=== PATIENT | female | born 1955 | race Caucasian/White ===

== ENCOUNTER → 2018-07-05 | Outpatient (CLI) | payer OTHER ==
--- NOTE | 2018-07-09 15:25 | MAM ---
EXAM DESCRIPTION: 3D Screening BILATERAL : Digital Mammography. CLINICAL HISTORY: 63 years Female SCREENING . "Fibrocystic tissue." No other complaints. Gallstones with breast cancer. Childbirth. Postmenopausal 34 years. No HRT. Bilateral breast reduction.. Lifetime risk of developing breast cancer (Tyrer-Cuzick model)(%): Not calculated COMPARISON: Baseline study at this facility. No prior reports available. TECHNIQUE: Bilateral CC and MLO projection full-field images, digital tomosynthesis mammographic technique. Bilateral digital 2-D full-field MLO images. CAD not available for tomosynthesis or 2-D images. FINDINGS: The breast parenchymal density pattern is: Scattered areas of fibroglandular density. No skin thickening or nipple retraction. Unusual focal asymmetries in densities in both breasts most likely secondary to prior breast reduction. Slightly irregular mass density posterior third abutting the chest wall at the 600 clock position with multiple calcifications and circumscribed microlobulated and irregular margins. Another focal asymmetry more laterally and in the upper outer quadrant at the 10:00 position of the right breast 9 cm from the nipple. Bilateral solitary microcalcifications and vascular calcifications. Bilateral axillary lymph nodes. Mass density in the middle third of the left breast at the 2:00 position approximately 8 cm from the nipple. Not associated with microcalcifications. Minimal architectural distortion retroareolar left breast. IMPRESSION: BI-RADS CATEGORY: 0 - INCOMPLETE- Need additional imaging evaluation. FOLLOW-UP: Recall for additional imaging: Bilateral targeted breast ultrasound of the regions of interest. Bilateral orthogonal full-field digital tomosynthesis diagnostic images.. Written communication concerning the IMPRESSION and Follow-up, will be mailed to the patient and referring health care provider.. Electronically signed by: Ifeanyi Ortega MD 07/09/2018 3:22 PM [facility]
== END ==
LOC: MAMMO 16:10
PROVIDERS: ATTEND General Practice
DX: Z12.31 Encounter for screening mammogram for malignant neoplasm of breast (principal)

== ENCOUNTER → 2018-07-18 | Outpatient (CLI) | payer OTHER ==
--- NOTE | 2018-07-18 19:03 | US ---
EXAM DESCRIPTION: Breast,Bilateral: Ultrasound CLINICAL HISTORY: 63 yearsFemaleFIBROCYSTIC CHANGES OF BREAST. Bilateral abnormal breast densities. Previous removal of silicone breast implants. COMPARISON: Bilateral screening digital breast tomosynthesis 07/05/2015. Bilateral diagnostic digital breast tomosynthesis today. TECHNIQUE: Transcutaneous scanning of the bilateral breast utilizing farnsworth-scale and Doppler modes. Scanning performed by the wet mix operator and Dr. Ortega. FINDINGS: Scanning of the left breast shows fibroglandular and fatty echotexture. 1:00-2:00, 4 cm from the nipple. Irregular hypoechoic objects with predominantly posterior acoustic shadowing. No definite mass. Parallel orientation. No abnormal vascularity. May represent residual implant tissue. 2:00-3:00, 5 to 6 cm from the nipple. Mixed hypoechoic and echogenic structure with variable posterior acoustic signature, mostly posterior enhancement. No definite mass. This could represent a lymph node or residual implant tissue. No distinct cyst. No large calcifications or parenchymal edema. Normal overlying skin. No abnormal vascularity. Scanning of the right breast shows fibroglandular and fatty heterogeneous echotexture. 8:00-9:00 variable echogenicity with some acoustic shadowing but no definite mass. Same at 9:30-10:00 8 cm from the nipple. No distinct cysts. No parenchymal edema or large calcifications. No overlying skin changes. No abnormal vascularity. IMPRESSION: Abnormal tissues and shadowing bilateral breast ultrasound. Correlates with irregular densities and mass densities on both breasts by digital mammography. Difficult to differentiate abnormal findings from residual implant material bilateral breasts. Breast MRI without and with gadolinium IV would be more sensitive to differentiate post implant removal changes from malignancy. ASSESSMENT: BI-RADS CATEGORY: 0 - INCOMPLETE- Need additional imaging evaluation. FOLLOW-UP: Recall for additional imaging: MRI scan of the bilateral breasts without and with gadolinium IV contrast. The FINDINGS and the FOLLOW-UP plan were reviewed in person with the patient after the examination. Written communication explaining the IMPRESSION and FOLLOW-UP will be mailed to the patient and referring care provider. CRITICAL COMMUNICATION: The critical value was discussed directly by phone with TAYLOR Mortensen at approximately 1620 hours, on 07/18/2018. Electronically signed by: Ifeanyi Ortega MD 07/18/2018 7:00 PM [facility]
--- NOTE | 2018-07-19 10:18 | MAM ---
EXAM DESCRIPTION: 3D Diagnostic, Bilateral: Digital Mammography CLINICAL HISTORY: 63 yearsFemaleFIBROCYSTIC CHANGES OF BREAST . Bilateral silicon breast implants removed. Bilateral abnormal breast densities. No personal history of breast cancer. Remote family history of breast cancer. Postmenopausal. No HRT. Lifetime risk of developing breast cancer (Tyrer-Cuzick model) percentage is 6.2. COMPARISON: Bilateral screening digital breast tomosynthesis 07/05/2018. Bilateral targeted breast ultrasound included with this examination.. TECHNIQUE: Bilateral LM projection full-field images, digital mammographic tomosynthesis technique. CAD not available. FINDINGS: The breast parenchymal density pattern is: Scattered areas of fibroglandular density. No skin thickening or nipple retraction again noted is focal asymmetry posterior right breast near the chest wall at approximately 11:30-12:00 position. Adjacent calcifications. Also focal asymmetry 8:00-9:00 position. Mass density 2:00-3:00 position 8 cm from the nipple. Adjacent calcifications. Ultrasound: Scanning of the left breast shows fibroglandular and fatty echotexture. 1:00-2:00, 4 cm from the nipple. Irregular hypoechoic objects with predominantly posterior acoustic shadowing. No definite mass. Parallel orientation. No abnormal vascularity. May represent residual implant tissue. 2:00-3:00, 5 to 6 cm from the nipple. Mixed hypoechoic and echogenic structure with variable posterior acoustic signature, mostly posterior enhancement. No definite mass. This could represent a lymph node or residual implant tissue. No distinct cyst. No large calcifications or parenchymal edema. Normal overlying skin. No abnormal vascularity. Scanning of the right breast shows fibroglandular and fatty heterogeneous echotexture. 8:00-9:00 variable echogenicity with some acoustic shadowing but no definite mass. Same at 9:30-10:00 8 cm from the nipple. No distinct cysts. No parenchymal edema or large calcifications. No overlying skin changes. No abnormal vascularity. IMPRESSION: Abnormal tissues and shadowing bilateral breast ultrasound. Correlates with irregular densities and mass densities on both breasts by digital mammography. Difficult to differentiate abnormal findings from residual implant material bilateral breasts. Breast MRI without and with gadolinium IV would be more sensitive to differentiate post implant removal changes from malignancy. ASSESSMENT: BI-RADS CATEGORY: 0 - INCOMPLETE- Need additional imaging evaluation. FOLLOW-UP: Recall for additional imaging: MRI scan of the bilateral breasts without and with gadolinium IV contrast. The FINDINGS and the FOLLOW-UP plan were reviewed in person with the patient after the examination. Written communication explaining the IMPRESSION and FOLLOW-UP will be mailed to the patient and referring care provider. CRITICAL COMMUNICATION: The critical value was discussed directly by phone with TAYLOR Mortensen at approximately 1620 hours, on 07/18/2018. Electronically signed by: Ifeanyi Ortega MD 07/19/2018 10:15 AM [facility]
== END ==
LOC: MAMMO 08:00
PROVIDERS: ATTEND Nurse Practitioner Family
DX: N60.11 Diffuse cystic mastopathy of right breast (principal); N60.12 Diffuse cystic mastopathy of left breast
CPT/HCPCS: 76641; 77066; G0279

== ENCOUNTER → 2018-09-06 | Outpatient (CLI) | payer OTHER ==
--- NOTE | 2018-09-06 10:16 | OP ---
DATE OF PROCEDURE: 09/06/18 PREOPERATIVE DIAGNOSIS: 1. Abnormal left mammogram. POSTOPERATIVE DIAGNOSIS: 1. Abnormal left mammogram. PROCEDURE: 1. Sonographically guided needle core biopsy, left breast mass. SURGEON: Dragan Lux MD. AREA SALES MANAGER: None. ANESTHESIA: Local infiltration of 1% lidocaine. INDICATION: The patient is a 63-year-old female who on routine mammography was found to have an abnormality in both the right and left breasts. She eventually underwent ultrasound and an MRI with gadolinium contrast which revealed no lesion in the right breast and question of a mass in the left breast most likely consistent with a fibroadenoma. She was brought to the Ultrasound Suite today for sonographically guided needle core biopsy after the risks, benefits and alternatives to the procedure were discussed and accepted. FINDINGS: The previous ultrasound was reviewed along with the realtime ultrasound with the radiologist. The lesion was identified and multiple specimens were taken. PROCEDURE: After the patient was brought to the Ultrasound Suite and placed in the supine position with the head of the bed gently elevated, she was then turned somewhat upon her right side with a pillow behind her left shoulder and back. The left breast was examined. The lesion was identified. The breast lateral to the ultrasound probe was prepped with Betadine and draped with towels. Local infiltration of anesthesia was obtained with 1% lidocaine and the 25-gauge needle was introduced to the mass and infiltration between the skin and mass was performed with local anesthesia. A stab wound was then made with a 15 blade and then multiple passes were made with the biopsy needle with identification of the needle within the mass. The specimens were placed in the formalin and sent for pathological evaluation. Hemostasis was obtained with pressure. A single suture was placed with 4-0 Nylon. Sterile pressure dressing was applied. There was less than 5 mL of blood loss. The patient tolerated the procedure well. Followup appointment was made for next week. [facility][id number] [facility]
--- NOTE | 2018-09-06 19:39 | US ---
EXAM DESCRIPTION: Biopsy/Needle Guidance: Ultrasound. CLINICAL HISTORY: 63 years Female ABNORMAL MAMMO R92.8. Left breast mass BI-RADS Category 4A on MRI scan without and with gadolinium IV contrast. COMPARISON: Diagnostic ultrasound of the bilateral breast on 07/18/2018. TECHNIQUE: The procedure was performed by Dr. Lux. Repeat ultrasound localized the lesion at the 2:00-3:00 position of the left breast 5 to 6 cm from the nipple.. Sterile preparation. Sterile ultrasound guidance during needle passes. FINDINGS: The lesion is well demonstrated prior to the procedure multiple images demonstrate the echogenic needle within the lesion substance. IMPRESSION: Successful, ultrasound-guided needle core biopsy of left breast mass. Adequate core samples were obtained. Pathology examination at remote facility, results pending. Electronically signed by: Ifeanyi Ortega MD 09/06/2018 7:36 PM CDT
== END ==
LOC: US 08:24
PROVIDERS: ATTEND Surgery
DX: R92.8 Other abnormal and inconclusive findings on diagnostic imaging of breast (principal)

== ENCOUNTER 2020-02-12 11:41 | Emergency (ER) | payer OTHER ==
[2020-02-12] MEDS ORDERED: MORPHINE SULFATE INJ 10 MG/ML VIAL IV ONE (11:47)
[2020-02-12] MEDS ORDERED: MORPHINE SULFATE INJ 10 MG/ML VIAL ONE (11:47)
--- NOTE | 2020-02-12 11:59 | ED.PDOC ---
History of Present Illness - General Time Seen by Provider: 02/12/20 11:43 - History of Present Illness Initial Comments: 65 yo F was running to get dog when she missed stepped off porch and suffered ankle pain. Has not been able to ambulate since injury. Denies hitting head, l oc or other injuries. Denies numbness, tingling or discoloration. Allergies/Adverse Reactions: Allergies Penicillins Allergy (Verified 02/12/20 11:52) Home Medications: Ambulatory Orders Acetaminophen W/ Codeine [Tylenol W/ CODEINE #3] 1 ea PO Q6H PRN #12 ea 02/12/20 Review of Systems - Review of Systems Constitutional: Denies: chills, fever EENTM: Denies: blurred vision, throat pain, mouth pain Respiratory: Denies: cough, short of breath Cardiology: Denies: chest pain, palpitations Gastrointestinal/Abdominal: Denies: abdominal pain, diarrhea, nausea, vomiting Genitourinary: Denies: frequency, hematuria Musculoskeletal: States: joint pain, joint swelling. Denies: back pain Skin: Denies: rash Neurological: Denies: headache, numbness, paresthesia, seizure, tingling, tremors Hematologic/Lymphatic: Denies: blood clots, easy bleeding, easy bruising Past Medical History (General) - Patient Medical History Hx Seizures: No Hx Stroke: No Hx Dementia: No Hx of COPD: No Hx Cardiac Disorders: No Hx Congestive Heart Failure: No Hx Pacemaker: No Hx Hypertension: No Hx Thyroid Disease: No Hx Diabetes: No Hx Gastroesophageal Reflux: No Hx Cancer: No Hx of HIV: No Hx MRSA: No Other Surgeries:: - Social History Hx Tobacco Use: No Hx Alcohol Use: No Hx Substance Use: No Hx Depression: No - Activities of Daily Living Patient Lives Alone: Yes Family Medical History - Family History Mother Family History: Unknown Physical Exam - Physical Exam General Appearance: Alert, Comfortable, No apparent distress, Well Developed, Well Groomed, Well Hydrated, Well Nourished Eyes, Ears, Nose, Throat: PERRL/EOMI, normal ENT inspection Neck: non-tender, full range of motion, supple, normal inspection Cardiovascular/Respiratory: no M/R/G, normal peripheral pulses, normal breath sounds, no respiratory distress, tachycardia Gastrointestinal/Abdominal: non-tender, no organomegaly Back: normal inspection, no CVA tenderness, no vertebral tenderness Thigh/Hip: normal inspection, non-tender Leg: normal inspection Ankle: bone tenderness, deformity - dislocation , ecchymosis, soft tissue tenderness, swelling, other - dorsalis pedis and posterior tibialis 2+ faustina sym Progress - Progress Progress: post reduction exam wnl. normal sensation, motor function and good pulses. The data reviewed when caring for this patient included: nurse notesetc. The history and assessments from nurses notes were reviewed and considered, and the patient 's home medication list was also reviewed and considered. My assessment and the results of testing completed here in the ED were discussed with the patient/friend. All questions were answered, and they express understanding of my assessment and the plan. They have been instructed to return if their symptoms worsen, and have been asked to follow up with Dr. Aquino to recheck today's presenting complaint. Strict return precautions given including but not limited to worsening pain, numbness, change in color of foot, tingling, dislocation. she has been instructed to be NWB. I have reviewed medication, benefits, alternatives and side effects. Patient decided to proceed with medication.Poonam Joe DO #[id number] 02/12/20 13:26 - Results/Orders Results/Orders: 02/12/20 13:14 Discharge Stat Laboratory Results WBC 4.5 K/mm3 (4.8-10.8) L 02/12/20 12:35 RBC 4.65 M/mm3 (4.20-5.40) 02/12/20 12:35 Hgb 15.5 gm/dL (12.0-16.0) 02/12/20 12:35 Hct 45.0 % (36.0-47.0) 02/12/20 12:35 MCV 96.7 fl (81.0-99.0) 02/12/20 12:35 MCH 33.4 pg (27.0-31.0) H 02/12/20 12:35 MCHC 34.5 g/dL (33.0-37.0) 02/12/20 12:35 RDW 14.5 % (11.5-14.5) 02/12/20 12:35 Plt Count 236 K/mm3 (130-400) 02/12/20 12:35 MPV 7.0 fl (7.40-10.4) L 02/12/20 12:35 Absolute Neuts (auto) 3.30 K/uL (1.8-6.8) 02/12/20 12:35 Absolute Lymphs (auto) 0.60 K/uL (1.0-3.4) L 02/12/20 12:35 Absolute Monos (auto) 0.40 K/uL (0.2-0.8) 02/12/20 12:35 Absolute Eos (auto) 0.10 K/uL (0.0-0.4) 02/12/20 12:35 Absolute Basos (auto) 0.00 K/uL (0.0-0.1) 02/12/20 12:35 Neutrophils % 74.3 % (42.0-78.0) 02/12/20 12:35 Lymphocytes % 13.9 % (20.0-50.0) L 02/12/20 12:35 Monocytes % 8.1 % (2.0-9.0) 02/12/20 12:35 Eosinophils % 2.7 % (1.0-5.0) 02/12/20 12:35 Basophils % 1.0 % (0.0-2.0) 02/12/20 12:35 Sodium 142 mmol/L (135-145) 02/12/20 12:35 Potassium 3.4 mmol/L (3.6-5.0) L 02/12/20 12:35 Chloride 104 mmol/L (101-111) 02/12/20 12:35 Carbon Dioxide 26 mmol/L (21-31) 02/12/20 12:35 Anion Gap 15.4 (12-18) 02/12/20 12:35 BUN 17 mg/dL (7-18) 02/12/20 12:35 Creatinine 0.74 mg/dL (0.6-1.3) 02/12/20 12:35 BUN/Creatinine Ratio 23.0 (10-20) H 02/12/20 12:35 Random Glucose 138 mg/dL (70-105) H 02/12/20 12:35 Serum Osmolality 286.9 mOsm/L (275-295) 02/12/20 12:35 Calcium 8.8 mg/dL (8.4-10.2) 02/12/20 12:35 Total Bilirubin 0.5 mg/dL (0.2-1.0) 02/12/20 12:35 AST 32 IU/L (10-42) 02/12/20 12:35 ALT 32 IU/L (10-60) 02/12/20 12:35 Alkaline Phosphatase 66 IU/L (42-121) 02/12/20 12:35 Serum Total Protein 6.5 gm/dL (6.4-8.2) 02/12/20 12:35 Albumin 3.8 g/dl (3.2-5.5) 02/12/20 12:35 Globulin 2.7 gm/dL (2.3-3.5) 02/12/20 12:35 Albumin/Globulin Ratio 1.4 (1.1-1.9) 02/12/20 12:35 patients K was replaced with 40 meq po x 1 - Consult/PCP Time Called: 12:33 Consult/PCP: Dr. Aquino Procedures - Additional Procedures Progress: CONSCIOUS SEDATION PROCEDURE NOTE: Procedural Sedation Performed by: Dr. Poonam Joe Indications: ankle dislocation [place] Protocol: a time out was performed and the correct patient and site were verified Consent: The risks and benefits of monitored anesthesia care, including the risk of aspiration, deep sedation requiring airway management including possible intubation, nausea/vomiting and the risks of not performing the procedure, including severe pain and inability to complete the procedure, were all discussed with the [patient]. The alternatives of performing the procedure, including local anesthesia and IV analgesia, also discussed. The patient has a ride home available. ASA Class: [I-healthy] Mallampati Score: II Pre-anesthesia evaluation, including history, exam, and informed consent is documented in the note above. Monitoring: Continuous monitoring of heart rate, respiratory rate, pulse oximetry and ETCO2. Supplemental oxygen prior to and during procedure via nasal cannula. Resuscitation equipment available at the bedside during sedation. Intra-service start time: see paper documentation Intra-service stop time: see paper documentation The patient received 45 mg propofol and dosages were recorded on the sedation form. While sedated traction applied to ankle with anterior pressure put on heal, a palpable pop was felt, post reduction xray confirmed ankle reduced. dorsalis pedis pulse and post tibil pulse 2+ faustina. sensation and distal motor function was intact. a posterior short leg and stirrup splint were applied. The patient was recovered from the sedation without complication or incident. Patient returned to pre-sedation level of awareness. The monitoring was discontinued at this time. Post-anesthesia evaluation: Respiratory function, cardiovascular function, temperature, and mental status return to pre-anesthetic state. Pain was controlled. The patient tolerated p.o. Departure - Departure Clinical Impression: Hypokalemia Trimalleolar fracture of ankle, closed Qualifiers: Encounter type: initial encounter Laterality: right Qualified Code(s): S82.851A - Displaced trimalleolar fracture of right lower leg, initial encounter for closed fracture Ankle dislocation Qualifiers: Encounter type: initial encounter Laterality: right Qualified Code(s): S93.04XA - Dislocation of right ankle joint, initial encounter Time of Disposition: 13:06 Disposition: Discharge to Home or Self Care Instructions: Ankle Dislocation (DC), Ankle Fracture (DC) Activity: other - no weight bearing on right leg Referrals: Mark Mercedes MD [Primary Care Provider] - 1-5 Days Todd Aquino MD [Active Staff] - 02/13/20 Prescriptions: Acetaminophen W/ Codeine [Tylenol W/ CODEINE #3] 1 ea PO Q6H PRN #12 ea PRN Reason: Pain Home Medications: Ambulatory Orders Acetaminophen W/ Codeine [Tylenol W/ CODEINE #3] 1 ea PO Q6H PRN #12 ea 02/12/20 Additional Instructions: Follow up with Dr. Aquino tomorrow at 930 AM, return if symptoms worsen or as instructed.
--- NOTE | 2020-02-12 12:13 | RAD ---
EXAM DESCRIPTION: Ankle,Right 2 Views CLINICAL HISTORY: 65 years Female, fracture COMPARISON: None. Findings: Two view(s)/radiograph(s) Right ankle fracture or dislocation. Trimalleolar right ankle fracture with posterior dislocation of the talus with respect to the distal tibia. The distal fibular fracture fragment measures 5.2 cm. The medial malleolus fracture fragment measures 3.0 cm. The posterior malleolar fracture fragment measures 2.8 cm. IMPRESSION: Trimalleolar right ankle fracture dislocation. Electronically signed by: Irineo Hernandez MD 02/12/2020 12:11 PM CDT
[2020-02-12] MEDS ORDERED: PROPOFOL 200 MG/20 ML VIAL IV ONE (12:21)
--- NOTE | 2020-02-12 12:54 | RAD ---
EXAM DESCRIPTION: Ankle x-ray Right 2 Views CLINICAL HISTORY: 65 years, Female, post reduction COMPARISON: Previous x-ray right ankle same day TECHNIQUE: AP/lateral x-rays of the right ankle FINDINGS: Fractured lateral and medial malleolus. Compared to previous study, the degree of displacement and angulation is decreased consistent with reduction. Oblique fracture through the distal fibular diaphysis overlaps approximately 2 cm with a gap at the fracture site of approximately 6 mm. Gap at the medial malleolar fracture site is 7 mm. Talar dome appears intact. Calcaneus is not well seen. Additional x-ray images of the hindfoot may be helpful. IMPRESSION: Improved alignment of bimalleolar ankle fractures. Electronically signed by: Satya Polanco MD 02/12/2020 12:52 PM CDT
[2020-02-12] MEDS ORDERED: POTASSIUM CHLORIDE ELIXIR 20 MEQ/15 ML UD PO ONE (13:01)
[2020-02-12 14:04] VITALS: TEMP 97; O2SAT 94
[2020-02-12 14:07] VITALS: BP 159/90
== END 2020-02-12 13:45 | disposition home or self-care (01) ==
LOC: ER 11:41
DX: S82.851A Displaced trimalleolar fracture of right lower leg, initial encounter for closed fracture (principal); Z88.0 Allergy status to penicillin; X50.9XXA Other and unspecified overexertion or strenuous movements or postures, initial encounter; Y92.008 Other place in unspecified non-institutional (private) residence as the place of occurrence of the external cause; Y93.02 Activity, running
CPT/HCPCS: 36415; 73600; 80053; 85025; 94770; J2270; J3490

== ENCOUNTER 2020-02-14 05:40 | Day surgery (SDC) | payer OTHER ==
[2020-02-14] MEDS ORDERED: SODIUM CHL 0.9% 100ML MINI-BAG 100 ML IVPB ONE (05:54)
[2020-02-14] MEDS ORDERED: ceFAZolin SODIUM 1 GM VIAL ONE (05:54)
[2020-02-14] MEDS ORDERED: LACTATED RINGERS 1,000 ML ONE (05:54)
[2020-02-14] MEDS ORDERED: LACTATED RINGERS 1,000 ML IVS ONE (06:20)
[2020-02-14] MEDS ORDERED: BUPIVACAINE 0.5% 30 ML VIAL INJ ONE (06:21)
[2020-02-14] MEDS ORDERED: KETAMINE HCL 100 MG/ML VIAL ONE (06:43)
[2020-02-14] MEDS ORDERED: HYDROmorphone HCL INJ 2 MG/ML VIAL ONE (06:43)
[2020-02-14] MEDS ORDERED: ACETAMINOPHEN IV 1000MG 100 ML ONE (06:43)
[2020-02-14] MEDS ORDERED: DEXMEDETOMIDINE HCL 200 MCG/2 ML INJ IV ONE (06:43)
[2020-02-14] MEDS ORDERED: FAMOTIDINE INJ 10 MG/ML VIAL IV ONE (06:44)
[2020-02-14] MEDS ORDERED: MIDAZOLAM INJ 2 MG/2 ML VIAL ONE (06:44)
[2020-02-14] MEDS ORDERED: MAGNESIUM SULFATE INJ 1 GM/2 ML VIAL ONE (07:00)
[2020-02-14] MEDS ORDERED: ePHEDrine SULF 50 MG/ML ONE (07:00)
[2020-02-14] MEDS ORDERED: diphenhydrAMINE HCL 50 MG/ML VIAL ONE (07:00)
[2020-02-14] MEDS ORDERED: DEXAMETHASONE INJ 10 MG/ML VIAL ONE (07:00)
[2020-02-14] MEDS ORDERED: LIDOCAINE 1% 10 ML VIAL INJ ONE (07:00)
[2020-02-14] MEDS ORDERED: PROPOFOL 200 MG/20 ML VIAL IV ONE (07:00)
[2020-02-14] MEDS ORDERED: SODIUM CHLORIDE 0.9% 50 ML VIAL ONE (07:00)
[2020-02-14] MEDS ORDERED: KETOROLAC TROMETHAMINE INJ 30 MG/ML VIAL ONE (07:00)
[2020-02-14] MEDS: VANCOMYCIN HCL INJ 1,000 MG VIAL IVPB ONE ×2 (08:23→09:06)
[2020-02-14] MEDS: ceFAZolin SODIUM 1 GM VIAL ONE ×2 (08:23→09:05)
[2020-02-14] MEDS: BUPIVACAINE LIPOSOME 13.3 MG/ML VIAL INJ ONE ×2 (08:23→09:05)
[2020-02-14] MEDS ORDERED: ONDANSETRON INJ 4 MG/2 ML VIAL ONE (10:37)
[2020-02-14 12:50] VITALS: BP 124/75; TEMP 98.8; O2SAT 95
--- NOTE | 2020-02-14 13:34 | RAD ---
EXAM DESCRIPTION: Ankle,Right 2 Views CLINICAL HISTORY: 65 years, Female, POST SURGERY DR RIVAS COMPARISON: Previous x-ray images right ankle February 13, 2020 TECHNIQUE: AP/lateral/oblique of the right ankle FINDINGS: Plate and screws in the distal fibula with medial screws through the medial malleolus. Mild edema around the ankle joint. Orthopedic hardware has been placed since the previous study. IMPRESSION: Internal fixation of right ankle fractures. Electronically signed by: Satya Polanco MD 02/14/2020 1:33 PM CDT
--- NOTE | 2020-02-14 14:29 | RAD ---
PROVIDED CLINICAL HISTORY/REASON FOR EXAM: ORIF RIGHT ANKLE Findings/impression: One intraoperative fluoroscopic images. Please see operative note Dose: 2.15 mGy Time: 67.8 seconds Electronically signed by: Irineo Hernandez MD 02/14/2020 2:27 PM CDT
--- NOTE | 2020-02-26 11:01 | OP ---
DATE OF PROCEDURE: 02/14/20 PREOPERATIVE DIAGNOSIS: 1. Bimalleolar ankle fracture. POSTOPERATIVE DIAGNOSIS: 1. Bimalleolar ankle fracture. PROCEDURE: 1. ORIF of ankle. SURGEON: Todd Aquino MD EXECUTIVE VICE PRESIDENT: Ifeanyi Mac CST, SA-C ANESTHESIA: General anesthesia. COMPLICATIONS: None. FINDINGS: Bimalleolar ankle fracture. INDICATION: Ms. Rebolledo has a history of a twisting injury at which time she sustained acute onset of pain in the ankle. Following that, she was taken to the Emergency Room. X-rays revealed an ankle fracture and she followed up with me in the clinic. She and I discussed the risks, benefits and alternatives to operative therapy. She gave informed consent for ORIF. PROCEDURE: The patient was brought to the Operating Room and placed in supine position. General anesthesia was induced. The patient's leg was sterilely prepped and draped. Following prepping and draping, an incision was made along the lateral border of the fibula. Dissection was carried down to the fracture and it was reduced. A plate was applied to the lateral aspect and both the reduction and screw lengths were checked. Once appropriate screw lengths had been confirmed, attention was focused on the medial aspect. The fracture of the medial malleolus was identified and reduced. Two 4 mm cannulated screws were placed across the fracture site. The ankle was then stressed under fluoroscopic imaging and there was no noted instability. The wounds were very thoroughly irrigated and closed with combination of running and interrupted subcuticular stitches. Sterile dressings were placed, a splint was placed and the patient was awoken from anesthesia and taken to Recovery. POSTOPERATIVE PLAN: She will be non-weightbearing. She will followup with us in two days. #[id number] [facility]
== END 2020-02-14 11:50 | disposition home or self-care (01) ==
LOC: AMB 05:40
PROVIDERS: ATTEND Orthopaedic Surgery
DX: S82.841A Displaced bimalleolar fracture of right lower leg, initial encounter for closed fracture (principal); I10 Essential (primary) hypertension; G25.81 Restless legs syndrome; E66.9 Obesity, unspecified; Z88.0 Allergy status to penicillin; Z79.899 Other long term (current) drug therapy
CPT/HCPCS: 01480; 27814; 73600; 76000; 80307; 81001; 82948; 87070; 87086; 93005; A4216; C1713; C1769; J0690; J1100; J1170; J1200; J1885; J2250; J2405; J3370; J3475; J3490; J7050; J7120

== ENCOUNTER 2020-02-17 11:21 | Emergency (ER) | payer OTHER ==
[2020-02-17] MEDS ORDERED: SODIUM CHLORIDE 0.9% (FLUSH) 10 ML SYG IV PRN (12:09)
--- NOTE | 2020-02-17 12:13 | ED.PDOC ---
History of Present Illness - General Chief Complaint: Syncope/Near Syncope Stated Complaint: near syncopal episode Time Seen by Provider: 02/17/20 12:06 Source: patient, RN notes reviewed, Vital Signs reviewed, family - son Exam Limitations: no limitations - History of Present Illness Initial Comments: Patient is a 65-year-old white female who was at Dr. Shaw office having her cast removed and replaced with a 3D walking boot. She was sitting in a wheelchair, had just had the cast removed, was feeling some pain and had a syncopal episode. Patient denies any chest pain, shortness of breath, nausea or vomiting. She did become diaphoretic and clammy and then passed out. The length of time that she was unconscious was less than a minute. Timing/Prior Episodes: remote history - years ago Precipitating Factors: diaphoresis, pain Context: sitting Loss of Consciousness: brief (seconds) Current Symptoms: back to normal Allergies/Adverse Reactions: Allergies Penicillins Allergy (Verified 02/17/20 11:45) Home Medications: Ambulatory Orders Acetaminophen W/ Codeine [Tylenol W/ CODEINE #3] 1 ea PO Q6H PRN #12 ea 02/12/20 Aspirin-Caffeine [Bc Fast Pain Relief Arthr 1000-65 mg] 1 unit PO PRN 02/13/20 Losartan Potassium & Hydrochlo [Losartan Potassium/Hydroc 50-12.5 mg] 1 tab PO QAM 02/13/20 Thyroid [Mystic Thyroid] 120 mg PO QAM 02/13/20 Review of Systems - Review of Systems Constitutional: States: no symptoms reported. Denies: chills, fever, malaise, weakness EENTM: States: no symptoms reported. Denies: eye pain, blurred vision, double vision Respiratory: States: no symptoms reported. Denies: cough, short of breath, stridor, wheezing Cardiology: States: see HPI, syncope. Denies: chest pain, palpitations Gastrointestinal/Abdominal: States: no symptoms reported. Denies: abdominal pain, diarrhea, nausea, vomiting Genitourinary: States: no symptoms reported Musculoskeletal: States: no symptoms reported. Denies: back pain, neck pain Skin: States: see HPI, other - cool and clammy at time of syncope Endocrine: States: no symptoms reported Hematologic/Lymphatic: States: no symptoms reported All other Systems: No Change from Baseline Past Medical History (General) - Patient Medical History Hx Seizures: No Hx Stroke: No Hx Dementia: No Hx of COPD: No Hx Cardiac Disorders: No Hx Congestive Heart Failure: No Hx Pacemaker: No Hx Hypertension: Yes Hx Thyroid Disease: No Hx Diabetes: No Hx Gastroesophageal Reflux: No Hx Cancer: No Hx of HIV: No Hx MRSA: No - Vaccination History Hx Tetanus, Diphtheria Vaccination: Yes Hx Influenza Vaccination: No Hx Pneumococcal Vaccination: No - Social History Hx Tobacco Use: No Hx Alcohol Use: Yes - not in 2 months but normall heavy drinker Hx Substance Use: No Hx Substance Use Treatment: No Hx Depression: No - Female History Patient is a Female of Child Bearing Age (10 -59 yrs old): No Physical Exam - Physical Exam General Appearance: Alert, Anxious, No apparent distress, Well Developed, Well Groomed, Well Hydrated, Well Nourished Eyes, Ears, Nose, Throat Exam: normal ENT inspection, pharynx normal Neck: non-tender, full range of motion, supple, normal inspection Cardiovascular/Respiratory: regular rate, rhythm, no M/R/G - distant heart sounds, normal peripheral pulses, no JVD, normal breath sounds, no respiratory distress Gastrointestinal/Abdominal: normal bowel sounds, non tender, soft, no organomegaly, no pulsatile mass Back Exam: normal inspection, no CVA tenderness, no vertebral tenderness Extremity: normal range of motion, normal capillary refill, other - RLE in 3D walking boot. Mental Status: alert, oriented x 3 clothes ironer Exam: normal hearing, normal speech, PERRL Motor/Sensory: no motor deficit, no sensory deficit, no pronator drift Skin Exam: normal color, warm/dry Lymphatic: no adenopathy Progress - Progress Progress: Differential diagnosis: PE, vasovagal syncope, cardiac dysrhythmia, dyspnea among others. 02/17/20 14:09 Patient with syncope at her doctor's office. Probably vasovagal in nature. Probably secondary to pain. Patient's d-dimer is elevated but CTA does not show any PE. Plan on discharge home with follow-up with PCP. I discussed this plan of care with the patient and her son and they voiced understanding and agreement with the plan of care. Juan Hampton M.D. #[id number] - Results/Orders Results/Orders: EXAM DESCRIPTION: Chest,1 View CLINICAL HISTORY: syncope COMPARISON: None. IMPRESSION: Single AP portable upright view of the chest shows cardiac silhouette and pulmonary vasculature to be within normal limits. Lungs are normally aerated and clear. No obvious pleural effusion or pneumothorax is seen. Electronically signed by: Alden Biggs MD 02/17/2020 12:48 PM CDT EXAM DESCRIPTION: CTA Chest CLINICAL HISTORY: Syncope with elevated d dimer. COMPARISON: None. TECHNIQUE: Postcontrast CT images of the chest are obtained using pulmonary embolism imaging protocol. Three-D MIP reconstructed images of the arterial vasculature are obtained. Coronal and sagittal reconstructed images of the also provided. This exam was performed according to our departmental dose-optimization program, which includes automated exposure control, adjustment of the mA and/or kV according to patient size and/or use of iterative reconstruction technique . FINDINGS: Images are moderately degraded by patient breathing motion artifact limiting detailed evaluation. The heart is enlarged. No coronary artery calcifications. Thoracic aorta shows no aneurysmal dilatation or dissection. No definite filling defects are seen in the pulmonary arteries. No pathologically enlarged mediastinal, hilar, or axillary lymphadenopathy seen.. Several nodular densities are seen in the breast soft tissue bilaterally. No pleural or pericardial effusion. Visualized portion of the upper abdomen shows no acute findings. Lungs are mildly hypoaerated. Interstitial thickening in the lower lobes left greater than right is seen. Mild areas of groundglass attenuation are seen. Osseous structures show no aggressiv e bony lesions. Moderate spondylitic changes of the spine are seen. IMPRESSION: No CT evidence of pulmonary embolism. Interstitial thickening in the lungs left greater than right could be secondary to poor inspiratory effort and hypoaeration of the lungs. Imaging features can be seen with COVID-19 pneumonia, though are nonspecific and can occur with a variety of infectious and noninfectious processes. Nodularity of the breast tissue is seen. The patient should be up to date on routine screening mammography. CT is not sensitive or specific for breast findings. Electronically signed by: Alden Biggs MD 02/17/2020 1:52 PM CDT 02/17/20 12:09 Telemetry .ONCE Sodium Chloride 0.9% (Flush) [Saline Flush Syringe] 10 ml IV PRN PRN EKG Stat Laboratory Results - last 24 hr 02/17/20 02/17/20 12:13 12:13 WBC 4.4 L RBC 4.80 Hgb 16.0 Hct 46.5 MCV 96.8 MCH 33.3 H MCHC 34.4 RDW 14.1 Plt Count 270 MPV 7.0 L Absolute Neuts (auto) 2.90 Absolute Lymphs (auto) 0.70 L Absolute Monos (auto) 0.70 Absolute Eos (auto) 0.10 Absolute Basos (auto) 0.00 Neutrophils % 65.8 Lymphocytes % 15.5 L Monocytes % 15.0 H Eosinophils % 2.6 Basophils % 1.1 PT 10.0 INR 1.01 PTT (SP) 22.3 D-Dimer, Quantitative 1030.0 H* Sodium 137 Potassium 3.3 L Chloride 98 L Carbon Dioxide 27 Anion Gap 15.3 BUN 14 Creatinine 0.69 BUN/Creatinine Ratio 20.3 H Random Glucose 95 Serum Osmolality 274.1 L Calcium 9.0 Magnesium 1.7 L Total Bilirubin 1.3 H Direct Bilirubin 0.3 H Indirect Bilirubin 1.0 H AST 26 ALT 25 Alkaline Phosphatase 57 Creatine Kinase 67 CK-MB (CK-2) 0.6 CK-MB (CK-2) % Not Reportable Troponin I < 0.02 B-Natriuretic Peptide < 15.0 Serum Total Protein 6.8 Albumin 3.7 EKG performed 17 February 2020 at 1130 hrs.: Normal sinus rhythm at 87 bpm, left atrial enlargement, cannot rule out anterior infarct, age undetermined, abnormal EKG. No comparison EKG available at this time. Departure - Departure Clinical Impression: Vasovagal syncope Time of Disposition: 14:12 Disposition: Discharge to Home or Self Care Condition: Good Departure Forms: ED Discharge - Pt. Copy, Patient Portal Self Enrollment Instructions: Vasovagal Response (DC) Diet: resume usual diet Activity: increase activity as tolerated Referrals: Mark Mercedes MD [Primary Care Provider] - 1-5 Days Home Medications: Ambulatory Orders Acetaminophen W/ Codeine [Tylenol W/ CODEINE #3] 1 ea PO Q6H PRN #12 ea 02/12/20 Aspirin-Caffeine [Bc Fast Pain Relief Arthr 1000-65 mg] 1 unit PO PRN 02/13/20 Losartan Potassium & Hydrochlo [Losartan Potassium/Hydroc 50-12.5 mg] 1 tab PO QAM 02/13/20 Thyroid [Mystic Thyroid] 120 mg PO QAM 02/13/20
[2020-02-17 12:34] VITALS: O2SAT 95
--- NOTE | 2020-02-17 12:49 | RAD ---
EXAM DESCRIPTION: Chest,1 View CLINICAL HISTORY: syncope COMPARISON: None. IMPRESSION: Single AP portable upright view of the chest shows cardiac silhouette and pulmonary vasculature to be within normal limits. Lungs are normally aerated and clear. No obvious pleural effusion or pneumothorax is seen. Electronically signed by: Alden Biggs MD 02/17/2020 12:48 PM CDT
--- NOTE | 2020-02-17 13:54 | CT ---
EXAM DESCRIPTION: CTA Chest CLINICAL HISTORY: Syncope with elevated d dimer. COMPARISON: None. TECHNIQUE: Postcontrast CT images of the chest are obtained using pulmonary embolism imaging protocol. Three-D MIP reconstructed images of the arterial vasculature are obtained. Coronal and sagittal reconstructed images of the also provided. This exam was performed according to our departmental dose-optimization program, which includes automated exposure control, adjustment of the mA and/or kV according to patient size and/or use of iterative reconstruction technique . FINDINGS: Images are moderately degraded by patient breathing motion artifact limiting detailed evaluation. The heart is enlarged. No coronary artery calcifications. Thoracic aorta shows no aneurysmal dilatation or dissection. No definite filling defects are seen in the pulmonary arteries. No pathologically enlarged mediastinal, hilar, or axillary lymphadenopathy seen.. Several nodular densities are seen in the breast soft tissue bilaterally. No pleural or pericardial effusion. Visualized portion of the upper abdomen shows no acute findings. Lungs are mildly hypoaerated. Interstitial thickening in the lower lobes left greater than right is seen. Mild areas of groundglass attenuation are seen. Osseous structures show no aggressive bony lesions. Moderate spondylitic changes of the spine are seen. IMPRESSION: No CT evidence of pulmonary embolism. Interstitial thickening in the lungs left greater than right could be secondary to poor inspiratory effort and hypoaeration of the lungs. Imaging features can be seen with COVID-19 pneumonia, though are nonspecific and can occur with a variety of infectious and noninfectious processes. Nodularity of the breast tissue is seen. The patient should be up to date on routine screening mammography. CT is not sensitive or specific for breast findings. Electronically signed by: Alden Biggs MD 02/17/2020 1:52 PM CDT
[2020-02-17 14:44] VITALS: BP 102/68; TEMP 97.8
== END 2020-02-17 14:20 | disposition home or self-care (01) ==
LOC: ER 11:21
DX: R55 Syncope and collapse (principal); R94.31 Abnormal electrocardiogram [ECG] [EKG]; I10 Essential (primary) hypertension; Z79.82 Long term (current) use of aspirin; Z88.0 Allergy status to penicillin

== ENCOUNTER → 2020-03-20 | Outpatient (CLI) | payer OTHER ==
--- NOTE | 2020-03-20 11:28 | RAD ---
EXAM: Ankle,Right 3 Views INDICATION: 65 years Female, CLOSED BIMALLEOLAR FRACTURE OF RIGHT ANKLE COMPARISON: 2 views of the right ankle 02/14/2020 FINDINGS: 3 views of the right ankle were performed. Stable appearance of malleable plate and screw fixation hardware at the distal fibula. Stable fixation screws at the medial malleolus. No apparent. Hardware lucency. Horizontally oriented linear lucency persists at the medial malleolus, best seen on the oblique/mortise view. No definite surrounding callus. No new fracture is identified. No destructive osseous lesion. Mild persistent soft tissue edema in the ankle. IMPRESSION: Stable fixation hardware in the distal right tibia and fibula when compared to the prior examination of 02/14/2020. Linear lucency persists at the medial malleolar fracture site without apparent bony callus formation. Electronically signed by: Ami Villasenor MD 03/20/2020 11:26 AM CDT
== END ==
LOC: RAD 09:48
PROVIDERS: ATTEND Orthopaedic Surgery
DX: S82.841D Displaced bimalleolar fracture of right lower leg, subsequent encounter for closed fracture with routine healing (principal); Z98.890 Other specified postprocedural states

== ENCOUNTER → 2020-04-14 | Outpatient (CLI) | payer OTHER ==
--- NOTE | 2020-04-14 10:05 | RAD ---
EXAM DESCRIPTION: Ankle,Right 3 Views CLINICAL HISTORY: 65 years Female, CLOSED BIMALLEOLAR FX OF RIGHT ANKLE COMPARISON: 03/20/2020 Findings: 3 view(s)/radiograph(s) Healing, internally fixated fractures of the distal fibula and medial malleolus. No hardware complication. No new fracture identified. No change in alignment. The talar dome is unremarkable. The ankle mortise is symmetric. IMPRESSION: Healing internally fixated fractures of the distal right fibula and medial malleolus. No hardware complication. Electronically signed by: Irineo Hernandez MD 04/14/2020 10:03 AM [facility]
== END ==
LOC: RAD 07:45
PROVIDERS: ATTEND Orthopaedic Surgery
DX: S82.841D Displaced bimalleolar fracture of right lower leg, subsequent encounter for closed fracture with routine healing (principal)

== ENCOUNTER → 2020-05-25 | Outpatient (CLI) | payer OTHER ==
--- NOTE | 2020-05-25 10:09 | RAD ---
EXAM DESCRIPTION: Ankle,Right 3 Views CLINICAL HISTORY: 65 years Female, FX COMPARISON: 04/14/2020 Findings: 3 view(s)/radiograph(s) Healing internally fixated fractures of the distal right fibula and medial malleolus. No hardware complication. No new fracture. Similar degenerative changes. The talar dome is unremarkable. Ankle mortise is symmetric. IMPRESSION: Healing internally fixated right ankle fractures. No hardware complication. Electronically signed by: Irineo Hernandez MD 05/25/2020 10:08 AM [facility]
== END ==
LOC: RAD 07:54
PROVIDERS: ATTEND Orthopaedic Surgery
DX: S82.841D Displaced bimalleolar fracture of right lower leg, subsequent encounter for closed fracture with routine healing (principal); Z98.890 Other specified postprocedural states